=== PATIENT | male | born 1930 | race Caucasian/White ===

== ENCOUNTER 2016-09-27 11:10 | Inpatient (IN) | payer MEDICARE, OTHER ==
--- NOTE | 2016-09-27 12:26 | ED.PDOC ---
History of Present Illness - General Chief Complaint: General Stated Complaint: low hemoglobin Time Seen by Provider: 09/27/16 12:16 - History of Present Illness Initial Comments: THIS PATIENT HAS BEEN ON XARELTO FOR SEVERAL MONTHS AND EVDENTLY HAS HAD SOME HEMATURIA, TREATED BY DR. BRIDGET KING IN [place]. TUESDAY HE NOTED HEMATOCHEZIA AND STOPPED THE XARELTO. THE RECTAL BLEEDING IMPROVED AND THEN HE RESUMED TRHE MEDS LAST NIGHT. HE PRESENTED TO DR. MIRNA FLETCHER'S OFFICE EARLIER TODAY AND A HB WAS 5.6. THE PATIENT IS SENT TO THE ED FOR FURTHER EVALUATION. Timing/Duration: other - SEVERAL WEEKS Severity: moderate Improving Factors: nothing Worsening Factors: nothing Associated Symptoms: malaise, weakness Allergies/Adverse Reactions: Allergies NO KNOWN ALLERGY Allergy (Verified 09/27/16 12:23) Review of Systems - Review of Systems Constitutional: States: malaise, weakness EENTM: States: no symptoms reported Respiratory: States: no symptoms reported Cardiology: States: no symptoms reported Gastrointestinal/Abdominal: States: other - RECTAL BLEEDING Genitourinary: States: no symptoms reported Musculoskeletal: States: no symptoms reported Skin: States: no symptoms reported Neurological: States: no symptoms reported Endocrine: States: no symptoms reported Hematologic/Lymphatic: States: no symptoms reported All other Systems: Reviewed and Negative Past Medical History (General) - Patient Medical History Hx Seizures: No Hx Stroke: No Hx Dementia: No Hx Asthma: No Hx of COPD: No Hx Cardiac Disorders: Yes - A-Fib Hx Congestive Heart Failure: No Hx Pacemaker: No Hx Hypertension: Yes Hx Thyroid Disease: Yes - hypothyroidism Hx Diabetes: No Hx Gastroesophageal Reflux: No Hx Renal Disease: No Hx Cancer: No Hx of HIV: No Hx Hepatitis C: No Hx MRSA: No Surgical History: tonsillectomy - Social History Hx Tobacco Use: No - Triage Comment ED Triage Comment: Was seen in Dr. Fletcher's office this am for rectal bleeding x 3 days. Family Medical History - Family History Mother Living Status: Physical Exam - Physical Exam General Appearance: Alert, Well Developed, Well Groomed, Well Hydrated Eye Exam: bilateral normal, bilateral conjunctivae pale Ears, Nose, Throat: normal ENT inspection, other - USES HEARING AUGMENTATION Neck: non-tender, full range of motion, supple, normal inspection Respiratory: chest non-tender, lungs clear, normal breath sounds, no respiratory distress Cardiovascular/Chest: normal peripheral pulses, regular rate, rhythm, no edema, no gallop, no JVD, no murmur Gastrointestinal/Abdominal: normal bowel sounds, non tender, soft, no organomegaly, no pulsatile mass Rectal Exam: normal exam, normal rectal tone, other - STOOL IS BROWN Back Exam: normal inspection Extremity: normal range of motion, non-tender, normal inspection, no pedal edema , no calf tenderness Skin Exam: pallor Lymphatic: no adenopathy Progress - Progress Progress: 09/27/16 13:16 HB OF 5.6, HCT 17.9, CREAT OF 1.4, BUN OF 31. THE PATIENT HAS BEEN TYPED AND CROSSED FOR TWO UNITS OF PRBC AND WILL BE TRANSFUSED. I HAVE DISCUSSED THE CASE WITH ELSIE SPANN, HOSPITALIST- ACCEPTS ADMISSION TO THE HOSPITAL. Departure - Departure Clinical Impression: Rectal bleeding Anemia Qualifiers: Iron deficiency anemia type: chronic blood loss Time of Disposition: 13:19 Disposition: Admit Patient Departure Forms: ED Discharge - Pt. Copy, Patient Portal Self Enrollment Diet: resume usual diet Activity: increase activity as tolerated - WILL ADMIT FOR TRANSFUSION AND CONSIDER GI CONSULTATION
--- NOTE | 2016-09-27 13:40 | HP ---
SUPERVISING PHYSICIAN: Bright Orona M.D. CHIEF COMPLAINT: Anemia. HISTORY OF PRESENT ILLNESS: Mr. Rust is an 86 year-old male patient that presented from the clinic, Dr. Fletcher's office, for evaluation of a low hemoglobin. The patient has a history of taking Xarelto for Afib since about October 2015 and has had some problems with hematuria off and on which he has been followed by Dr. Philippe Gonzalez in [place]. This past the patient noted he had some hematochezia and then stopped the Xarelto. The rectal bleeding did improve. He talked to Dr. Fletcher's office on Tuesday who recommended he either go to the E. R. or come see Dr. Fletcher on Tuesday. The patient noted he was no longer having any obvious blood in his stool and presented to Dr. Fletcher's office today. Workup in the office showed him to have a hemoglobin of 5.6, hematocrit 17.9. At that point, given the severe anemia and the patient being on Xarelto with active bleed within the last 4 or 5 days, the patient was referred to the Emergency Department. He was found to be in stable condition. Blood pressure on admission to the Emergency Department showed him to be hemodynamically stable with 125/65 with heart rate of 88 showing a normal sinus rhythm on monitor. He was satting 97% on room air and he was afebrile. Exam in the Emergency Department by Dr. Cui resulted in a positive occult blood, however it was noted that the patient's stools were without any james blood on examination and the stool was brown in color and consistency as normal bowel movement. Given the patient' s severity of anemia with the concern for continued lower gastrointestinal bleed , the patient was cross matched for transfusion of 2 units of packed red blood cells and is now to be admitted to the Medical/Surgical floor for continued evaluation, treatment, transfusion of blood and consultation with gastrointestinal services this coming Tuesday with Dr. Piper. The patient was admitted to the Medical/Surgical floor in stable condition. PAST MEDICAL HISTORY: 1. Hypertension. 2. Hypothyroidism. 3. Benign prostatic hypertrophy. 4. Osteoarthritis. 5. Dyslipidemia. 6. Peripheral vascular disease. 7. Diverticulosis. 8. Paroxysmal atrial fibrillation diagnosed in 2016 started on X[address]to by Dr. Portillo. 9. Gross hematuria followed by Dr. Gonazlez. 10. Sleep apnea but does not wear a CPAP. PAST SURGICAL HISTORY: 1. Tonsillectomy and adenoidectomy at age 15. 2. Total left knee in 2013. 3. Bilateral cataracts in 2006. 4. His last echocardiogram was on 01/23/14 and indicated a diastolic dysfunction with an estimated ejection fraction of 66%. HOME MEDICATIONS: 1. Avodart 0.5 mg daily. 2. Levothyroxine 112 mcg daily. 3. Hytrin 5 mg daily. 4. Zocor 20 mg daily. 5. Lisinopril 10 mg daily. 6. Donepezil 10 mg daily. 7. Xarelto 10 mg at bedtime. 8. Colestid 5 mg daily. ALLERGIES: NO KNOWN DRUG ALLERGIES. FAMILY HISTORY: Significant for throat cancers. SOCIAL HISTORY: The patient does have a history of previously smoking approximately 2-1/2 packs a day with an 80 pack year history between 1949 and 1980, and he has quit since 1980. He does admit to drinking alcohol on a daily basis which consists of either 2 shots of Tequila or 2 shots of Scotch. 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 He is . REVIEW OF SYSTEMS: CONSTITUTIONAL: Reports general malaise and weakness but no syncopal episodes. HEENT: Denies any complaints. RESPIRATORY: Notes some shortness of breath with exertion but no chest discomfort, congestion or cough. CARDIOVASCULAR: Denies any chest pains, palpitations, syncopal episodes or presyncopal episodes. Does have a history of paroxysmal atrial fibrillation for which he was started on Xarelto. GASTROINTESTINAL: As noted in History of Present Illness. Rectal bleeding but denies any nausea or vomiting or diarrhea. GENITOURINARY: History of benign prostatic hypertrophy but no current complaints of dysuria. Does have a history of gross hematuria but denies any gross hematuria at this time. MUSCULOSKELETAL: Noted weakness but denies any complaints other than history of osteoarthritis. INTEGUMENT: Denies any easy bruising or unexplained bleeding. NEUROLOGIC: Denies any neurological changes or headaches. Does report some dizziness but no syncopal episodes. PHYSICAL EXAMINATION: VITAL SIGNS: Temperature 98.3, pulse 85, blood pressure 120/67, respirations 20 , O2 sat 97% on room air at rest. Admission weight 74.1 kg. GENERAL: The patient does appear to be well developed, well groomed and well hydrated, and is in no obvious acute distress. HEENT: Does wear bilateral hearing aids. Oropharynx is pale but moist. It is noted that he has bilateral conjunctiva that are pale. Tympanic membranes are clear bilaterally after hearing aids removed. NECK: No jugular venous distention. CHEST: Lungs are clear to auscultation without any rhonchi, wheezing or rales. CARDIOVASCULAR: Regular rate and rhythm without appreciable murmurs, gallops, or rubs. ABDOMEN: Soft, non-tender. Positive bowel sounds. RECTAL: Exam was deferred as it was performed in the Emergency Department by Dr. Cui. As noted, it was a normal exam, normal rectal tone, and stool was brown in color. EXTREMITIES: No clubbing, cyanosis or edema. NEUROLOGIC: He is alert and oriented times three. Cranial nerves II-XII are grossly intact. Facial features are symmetrical. Extraocular movements are within normal limits. There are no notable localizing or lateralizing neuromotor deficits. LABORATORY: Hemoglobin 5.6, hematocrit 17.9 performed in the clinic by Dr. Fletcher. Platelet count is unavailable at time of admission. Coagulation studies show PT 15.5 with INR 1.39, PTT 28.9, reticulocyte and absolute reticulocyte count are pending. Chemistries show normal electrolytes with potassium 4.4, BUN 31, creatinine 1.43, glucose 211, calcium 8.9. Iron was 10, TIBC was normal at 354 with iron saturation low at 2.8. Total bilirubin 0.4, AST and ALT both within normal limits, alkaline phosphatase 36. LDH was 117. Vitamin B12 and folate are pending. Stool occult blood was positive. Urinalysis is pending. BLOOD BANK: the patient was typed and crossed. He is A+ , had a negative antibody screen. RADIOLOGY: No additional radiographic studies were performed on admission. ASSESSMENT: 1. Severe anemia, symptomatic with clinical presentation of weakness and dizziness but hemodynamically stable with the patient having been on Xarelto with recent rectal bleed. 2. Rectal bleed with the patient being on Xarelto with current occult bloods positive with the patient being hemodynamically stable and having stopped Xarelto for the last 72 hours. 3. History of paroxysmal atrial fibrillation diagnosed in October 2015 started on Xarelto by Dr. Portillo currently showing a sinus arrhythmia with no evidence of tachycardia. 4. History of hypertension. 5. History of hypothyroidism on supplementation. 6. History of benign prostatic hypertrophy with elevated PSAs followed by Dr. Gonzalez with a history of gross hematuria. 7. Peripheral vascular disease. 8. History of sleep apnea. 9. Renal insufficiency with an elevated BUN and creatinine likely secondary to gastrointestinal loss versus some mild dehydration. PLAN: The patient will be admitted to the Medical/Surgical floor for continued evaluation and treatment, and transfusion of 2 units of packed red blood cells. The patient is hemodynamically stable at this point. He has been typed and crossed and will be given 2 units of blood tonight with 20 of Lasix after second unit. Will plan to reevaluate hemoglobin and hematocrit in the morning and monitor closely. He will be on telemetry. Should he show any change in condition and any instability, he certainly will require transfer to a higher level of care. We will try to secure a consultation with podiatrist specialist, Dr. Piper, this Tuesday to further address current rectal bleed. I will try to talk to Dr. Portillo in regards to the Xarelto and current heart rhythm , and need for continuation of anticoagulation in the near future, as well as with Dr. Fletcher. He will be provided oxygen as needed and fall precautions in place as he is dizzy secondary to anemia. Will anticipate length of stay to be 2 to 3 days with probable discharge on Tuesday once the patient is found to be clinically stable. Until that point, will continue to monitor the patient closely and treat appropriately. #[id number] [facility]
[2016-09-27] MEDS ORDERED: IV SET AND CAP CHANGE INJ INJ SCH (14:00)
[2016-09-27] MEDS ORDERED: diphenhydrAMINE HCL 50 MG/ML VIAL IV ONE (14:56)
[2016-09-27] MEDS ORDERED: ACETAMINOPHEN 325 MG TAB PO ONE (14:56)
[2016-09-27] MEDS ORDERED: FUROSEMIDE INJ 20 MG/2 ML VIAL IV ONE (14:56)
[2016-09-27] MEDS ORDERED: SODIUM CHLORIDE 0.9% 500ML 500 ML IVS SCH (15:00)
[2016-09-27] MEDS: SODIUM CHLORIDE 0.9% (FLUSH) 10 ML SYG IV PRN ×3 (15:16→22:57)
--- NOTE | 2016-09-28 01:36 | PCM.CORE ---
Physician DVT/VTE - Contraindications Medication Contraindication: Medical Contraindication - Gi Bleed on Xarelto - Nurse DVT Assessment & Total Each Risk Factor Represents 3 Points: Age over 75 years Each Risk Factor is 1 Point: Obesity (BMI >25) DVT Assessment Score: 4 - 5 or more Very High Risk Treatments: Early Ambulation *, Sequential Compression Device
[2016-09-28] MEDS ORDERED: diphenhydrAMINE HCL 50 MG/ML VIAL IV ONE (08:29)
[2016-09-28] MEDS ORDERED: ACETAMINOPHEN 325 MG TAB PO ONE (08:29)
[2016-09-28] MEDS ORDERED: FUROSEMIDE INJ 20 MG/2 ML VIAL IV ONE (08:29)
[2016-09-28] MEDS ORDERED: SODIUM CHLORIDE 0.9% 500ML 500 ML IVS SCH (08:30)
[2016-09-28] MEDS ORDERED: COLESTIPOL HCL 1 GM TAB PO SCH (10:15)
[2016-09-28] MEDS ORDERED: DONEPEZIL HCL 5 MG TAB PO SCH ×2 (10:15→21:00)
[2016-09-28] MEDS ORDERED: TERAZOSIN 5 MG CAP PO SCH ×2 (10:30→21:00)
[2016-09-28] MEDS ORDERED: DUTASTERIDE 0.5 MG CAP PO SCH (10:30)
[2016-09-28] MEDS ORDERED: SIMVASTATIN 20 MG TAB PO SCH ×2 (10:30→21:00)
[2016-09-28] MEDS: LISINOPRIL 10 MG TAB PO SCH (11:08)
[2016-09-28] MEDS: SODIUM CHLORIDE 0.9% (FLUSH) 10 ML SYG IV SCH ×2 (11:12→20:59)
--- NOTE | 2016-09-28 13:41 | PN ---
SUPERVISING PHYSICIAN: Robb Moore MD DATE: 09/28/16 SUBJECTIVE: The patient received 2 units of packed red blood cells last night without any complications. He noted Benadryl made him a little anxious, but when it wore off, he was able to sleep. He remains afebrile and has had no nausea, vomiting or diarrhea. OBJECTIVE: VITAL SIGNS: T-max 98.6. Pulse 80. Blood pressure 128/79. Respirations 18. O2 saturation 95% on room air. I&Os show positive balance of 781 with 1481 in, 700 out. Weight 73.2 kg. CHEST: Lungs clear to auscultation bilaterally without rales, rhonchi or wheezing. HEART: Regular rate and rhythm. ABDOMEN: Obese, but soft and nontender. Positive bowel sounds. EXTREMITIES: No cyanosis, clubbing or edema. NEUROLOGIC: Alert and oriented times three. LABORATORY: Hemoglobin 6.8, hemoglobin 20.0 after 2 units of packed red blood cells. White count remains normal at 6.2 with platelet count 167,000. Differential within normal limits. Retic and absolute retic counts pending. Repeat chemistries show normal electrolytes with potassium 3.9, BUN 25 which is improved from admission of 31, creatinine 1.1, glucose 112, calcium 8.9. Liver functions within normal limits. Vitamin B12 and folate pending. Iron studies again showed low iron, normal TIBC with low iron saturation, ferritin 8.4. Stool occult blood times 1 was positive. EKG showed a sinus arrhythmia with controlled ventricular rate and no evidence of atrial fibrillation. ASSESSMENT: 1. Severe anemia, symptomatic, with clinical presentation of weakness and dizziness, but hemodynamically stable with the patient having been on Xarelto with recent rectal bleed, showing some slow improvement in hemoglobin and hematocrit after 2 units of packed red blood cells. 2. Rectal bleed with the patient being on Xarelto with current occult bloods positive on admission with the patient being hemodynamically stable and having stopped Xarelto 72 hours prior to admission without any further evidence of hematochezia or gross blood in stools. 3. History of paroxysmal atrial fibrillation diagnosed in October 2015, started on Xarelto by Dr. Portillo, currently showing a sinus arrhythmia with no evidence of tachycardia with Xarelto having been stopped. 4. History of hypertension. 5. History of hypothyroidism on supplementation. 6. History of benign prostatic hypertrophy with elevated PSAs, followed by Dr. Gonzalez with a history of gross hematuria complicated by Xarelto. 7. Peripheral vascular disease. 8. History of sleep apnea. 9. Renal insufficiency with an elevated BUN initially on admission with creatinine showing normalization as well as BUN improving after intravenous fluids, felt to be secondary to gastrointestinal loss of blood versus some mild dehydration. PLAN: The patient will receive 2 more units of packed red blood cells today with repeat hemoglobin and hematocrit later tonight or in the morning. The patient is anxious to go home. I explained to him that we need to get the units transfused and give him time to level off and become steady and make sure he is not continuing to lose a significant amount of blood. I did talk to Dr. Ny in [place], his office staff, specifically, Lori, his nurse, in regards to establishing a followup appointment with Dr. Ny for a scope in regards to the rectal bleeding. He is scheduled to see Dr. Ny on 09/30/15 at 10:45 in [place]. At this point, we plan to discharged the patient once his hemoglobin and hematocrit are showing improvement and is at least above 8 in regards to the hemoglobin and having followed upon closely with his GI specialist, Dr. Ny, as scheduled. Until discharge, we will continue to monitor the patient closely and treat appropriately. #[id number] [facility]ENTERWojciech
[2016-09-29 03:16] VITALS: O2SAT 96
[2016-09-29] MEDS ORDERED: LEVOTHYROXINE SODIUM 0.112 MG TAB ONE (05:26)
[2016-09-29 05:55] VITALS: BP 164/81; TEMP 97.7
[2016-09-29] MEDS ORDERED: LEVOTHYROXINE SODIUM 0.112 MG TAB PO SCH (06:30)
[2016-09-29] MEDS: LISINOPRIL 10 MG TAB PO SCH (08:52)
[2016-09-29] MEDS: SODIUM CHLORIDE 0.9% (FLUSH) 10 ML SYG IV SCH (08:53)
[2016-09-29] MEDS ORDERED: DUTASTERIDE 0.5 MG CAP PO SCH (09:00)
--- NOTE | 2016-10-04 11:45 | DS ---
SUPERVISING PHYSICIAN: Robb Moore MD DISCHARGE DIAGNOSIS: 1. Severe anemia, symptomatic with clinical presentation of weakness and dizziness, but hemodynamically stable with the patient having been on Xarelto with recent rectal bleed, showing some slow improvement in hemoglobin and hematocrit after transfusion of packed red blood cells, total of 4 units. 2. Rectal bleed with the patient being on Xarelto with current occult bloods on admission being positive with the patient being hemodynamically stable and having stopped Xarelto 72 hours prior to admission without any further hematochezia or gross blood in the stools. 3. History of paroxysmal atrial fibrillation diagnosed in October 2015 started on Xarelto by Dr. Portillo, currently showing a sinus arrhythmia with no evidence of tachycardia with Xarelto having been stopped. 4. History of hypertension. 5. History of hypothyroidism on supplementation. 6. History of benign prostatic hypertrophy with elevated PSAs, followed by Dr. Gonzalez with a history of gross hematuria, complicated by Xarelto. 7. Peripheral vascular disease. 8. History of sleep apnea. 9. Renal insufficiency with an elevated BUN initially on admission with creatinine showing normalization as well as BUN improvement with intravenous fluids, felt to secondary to gastrointestinal loss of blood versus mild dehydration. HISTORY OF PRESENT ILLNESS: Mr. uRst is an 86-year-old, , male patient that presented from the clinic, Dr. Fletcher's office, for evaluation of a low hemoglobin. The patient has a history of taking Xarelto for atrial fibrillation since about October 2015 and had had some problems with hematuria off and on which he has been followed by Dr. Philippe Gonzalez in [place]. This past prior to admission, the patient noted he had some hematochezia and then stopped the Xarelto. The rectal bleeding did improve. He talked to Dr. Fletcher's office on Tuesday who recommended he either go to the Emergency Room or come see Dr. Fletcher on Tuesday. The patient noted he was no longer having any obvious blood in his stool and presented to Dr. Fletcher's office on Tuesday. Workup in the office showed him to have a hemoglobin of 5.6, hematocrit 17.9. At that point, given the severe anemia and the patient being on Xarelto with active bleed within the last 4 or 5 days, the patient was referred to the Emergency Department. He was found to be in stable condition. Blood pressure on admission to the Emergency Department showed him to be hemodynamically stable with blood pressure 125/65 with heart rate of 88 showing a normal sinus rhythm on monitor. He was satting 97% on room air and he was afebrile. Exam in the Emergency Department by Dr. Cui resulted in a positive occult blood , however, it was noted that the patient's stools were without any james blood on examination and the stool was brown in color and consistency as normal bowel movement. Given the patient's severity of anemia with the concern for continued lower gastrointestinal bleed, the patient was crossmatched for transfusion of 2 units of packed red blood cells initially and was admitted to the Medical/Surgical floor for continued evaluation, treatment, transfusion of blood and consultation with gastrointestinal services. The patient was admitted to the Medical/Surgical floor in stable condition. LABORATORY: Hemoglobin on admission as noted in history of present illness was 5.6 and hematocrit 17. After transfusion of 2 units on 06/28/17 was 6.8 and 20.0. After additional transfusion of 2 more units, hemoglobin was 10.3 and hematocrit 31. Platelet count was 201,000. Differential was was within normal limits. Retic count was 4.6. Coagulation studies show PT 15.5 with INR 1.39, PTT 28.9. Chemistries showed normal electrolytes on admission with potassium 4.4, BUN 31, creatinine 1.43. After transfusion on 4 units, on discharge, electrolytes were within normal limits with potassium 3.8, BUN 22, creatinine 0.98, LDL 117, vitamin B12 512, folate greater than 24, ferritin 8.4, iron saturation 2.8, iron TIBC 354, iron low at 10. He had one occult blood that was positive. MICROBIOLOGY: No specimens submitted. BLOOD BANK: He did have transfusion of 4 units of packed red blood cells that were type specific, A+, antibody screen negative. HOSPITAL COURSE: Mr. Rust was admitted on 09/27/16 as noted in history of present illness for severe anemia and concern for rectal bleed. He had stopped the Xarelto several days prior to admission and was no longer having any obvious james blood. He was hemodynamically stable at time of admission. He was transfused 4 units of packed red blood cells without any complication. He was given Lasix between the second and third unit and after the fourth. He remained hemodynamically stable. At time of discharge, blood pressure was 164/ 81, respirations 20, saturation 96% on room air. He showed no complications from his transfusion and was clinically felt to be stable enough to go home to continue with further monitoring in the outpatient setting. It was initially hoped that he would have a GI consult in the hospital, however, this was unavailable through hospitalization and arrangements were made to followup with his GI doctor at time of discharge. PLAN: The patient was discharged on 09/29/16 to have close clinical followup both with Dr. Fletcher and with Dr. Ny on 09/30/16 at 10:45 for hopefully a colonoscopy. He was to hold his Xarelto until cleared by Dr. Fletcher, but to resume all his other medications as prescribed. He was to use caution when changing positions from sitting to standing to allow himself to stabilize to prevent falls. He was to do no strenuous exercise until cleared by Dr. Fletcher, no driving until he was also cleared by either Dr. Fletcher or Dr. Ny. He was told to return to the hospital should he have return of his bleeding, dizziness or other concerning symptoms. He was discharged in stable condition. No new medications were added to his current medication regimen other than he was told to hold his Xarelto. He was discharged in stable condition. #[id number] [facility]
== END 2016-09-29 09:10 | disposition home or self-care (01) | DRG 812 ==
LOC: ER 11:35 → MS 13:39
PROVIDERS: ADMIT Nurse Practitioner Family; ATTEND Nurse Practitioner Family
PROC: 30233N1 Transfusion of Nonautologous Red Blood Cells into Peripheral Vein, Percutaneous Approach (ICD-10-PCS; 2016-09-27)
PROC: 30233N1 Transfusion of Nonautologous Red Blood Cells into Peripheral Vein, Percutaneous Approach (ICD-10-PCS; principal; 2016-09-28)
DX: D64.9 Anemia, unspecified (principal); R19.5 Other fecal abnormalities; I48.0 Paroxysmal atrial fibrillation; I10 Essential (primary) hypertension; E03.9 Hypothyroidism, unspecified; N40.0 Benign prostatic hyperplasia without lower urinary tract symptoms; I73.9 Peripheral vascular disease, unspecified; G47.30 Sleep apnea, unspecified; E86.0 Dehydration; N18.9 Chronic kidney disease, unspecified; M19.90 Unspecified osteoarthritis, unspecified site; E78.5 Hyperlipidemia, unspecified; Z79.01 Long term (current) use of anticoagulants; Z96.652 Presence of left artificial knee joint; Z79.899 Other long term (current) drug therapy; Z87.891 Personal history of nicotine dependence

== ENCOUNTER → 2016-11-01 | Outpatient (CLI) | payer MEDICARE, OTHER ==
--- NOTE | 2016-11-01 10:23 | RAD ---
EXAM DESCRIPTION: Left knee, three views. CLINICAL HISTORY: LEFT KNEE PAIN. FINDINGS/IMPRESSION: Severe medial femorotibial osteoarthritis with complete loss of joint space appear bony remodeling and sclerosis. Lateral joint line osteophytes along the medial femorotibial compartment Lateral femorotibial chondrocalcinosis. Tiny dorsal patellar osteophytes. Moderate suprapatellar joint effusion No fracture. Normal bone mineralization Electronically signed by: Bright Bond MD 11/01/2016 10:20
--- NOTE | 2016-11-01 10:23 | RAD ---
EXAM DESCRIPTION: Pelvis, single-view. CLINICAL HISTORY: Left hip pain. FINDINGS/IMPRESSION: No fracture or focal osteochondral lesion. Mild symmetric superior joint space narrowing in the hips. No advanced osteoarthritis Normal mineralization. Mild osteoarthritis sacroiliac joints Electronically signed by: Bright Bond MD 11/01/2016 10:21
== END | disposition home or self-care (01) ==
LOC: RAD 08:52
PROVIDERS: ATTEND Orthopaedic Surgery
DX: M25.552 Pain in left hip (principal); M25.562 Pain in left knee

== ENCOUNTER → 2016-12-27 | Outpatient (CLI) | payer MEDICARE, OTHER | END | disposition home or self-care (01) | LOC: GMAB 10:11 | PROVIDERS: ATTEND Family Medicine | DX: Z12.5 Encounter for screening for malignant neoplasm of prostate (principal); E03.9 Hypothyroidism, unspecified | CPT/HCPCS: 84439; 84443; 84481; G0103 ==

== ENCOUNTER → 2018-02-08 | Outpatient (CLI) | payer MEDICARE, OTHER | LOC: GMAB 11:56 | PROVIDERS: ATTEND Family Medicine | DX: E03.9 Hypothyroidism, unspecified (principal); E78.2 Mixed hyperlipidemia; I10 Essential (primary) hypertension; Z12.5 Encounter for screening for malignant neoplasm of prostate | CPT/HCPCS: 84439; 84443; 84481; G0103 ==

== ENCOUNTER → 2018-04-26 | Outpatient (CLI) | payer MEDICARE, OTHER | LOC: GMAE 14:20 | PROVIDERS: ATTEND Family Medicine | DX: R97.20 Elevated prostate specific antigen [PSA] (principal) ==

== ENCOUNTER → 2018-05-12 | Outpatient (CLI) | payer MEDICARE, OTHER ==
--- NOTE | 2018-05-12 09:05 | CT ---
Study: CT abdomen and pelvis. Indication: PROSTATE CANCER Technique: CT of the abdomen and pelvis obtained without intravenous contrast. This exam was performed according to our departmental dose-optimization program, which includes automated exposure control, adjustment of the mA and/or kV according to patient size and/or use of iterative reconstruction technique. Comparison: April 01, 2016. Findings: Emphysema. Calcified granulomas right lung base. Heart size normal. Coronary artery and abdominal aortic atherosclerosis. Several scattered hepatic cysts redemonstrated. Slight hyperdensity of the gallbladder. Stones or sludge could be present. Pancreas, spleen, adrenal glands unremarkable. 2.9 cm hyperdense right renal cyst redemonstrated superiorly, likely proteinaceous. No hydronephrosis or nephrolithiasis. Prostatomegaly. Bladder unremarkable. Stomach, small bowel, and appendix unremarkable. Colonic diverticulosis without evidence of diverticulitis. Tiny hiatal hernia. Small bowel and appendix unremarkable. No free fluid. No free air. No pathologically enlarged lymphadenopathy. Degenerative changes of the spine noted. Impression: Prostatomegaly. Pronounced atherosclerosis. Pronounced colonic diverticulosis. Additional stable findings as above. Electronically signed by: Don Flood MD 05/12/2018 9:04 AM CDT
== END ==
LOC: CT 08:29
PROVIDERS: ATTEND Urology
DX: C61 Malignant neoplasm of prostate (principal); K57.30 Diverticulosis of large intestine without perforation or abscess without bleeding; I25.10 Atherosclerotic heart disease of native coronary artery without angina pectoris; I70.0 Atherosclerosis of aorta

== ENCOUNTER → 2018-05-18 | Outpatient (CLI) | payer MEDICARE, OTHER ==
--- NOTE | 2018-05-19 13:41 | NM ---
EXAM DESCRIPTION: Bone Scan, Whole Body CLINICAL HISTORY: 87 years Male, prostate cancer COMPARISON: None. TECHNIQUE: The patient received 29.3 mCi technetium 99m MDP intravenously. Delayed whole body imaging was obtained. FINDINGS: Bandlike areas of increased activity are seen in the mid and lower thoracic spine primarily at the T6, T7, T9, and T10 levels. Mild increased activity is seen around the L1-L3 disc spaces in the lumbar region. 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 Focal increased activity in the right wrist region is seen. No abnormal increased activity is seen in the ribs. Mild increased activity in the left midfoot region is seen. Small amount of residual activity in the urinary bladder seen. IMPRESSION: Bandlike increased activity in the mid and lower thoracic spine at 4 levels suggests possible acute to subacute compression fracture deformities at these levels. Recommend correlation with thoracic spine series. Probable degenerative increased activity in the right wrist and left midfoot. No bone scan evidence of osteoblastic metastatic disease. Electronically signed by: Bernardino Santos MD 05/19/2018 1:40 PM CDT
== END ==
LOC: NM 10:30
PROVIDERS: ATTEND Urology
DX: C61 Malignant neoplasm of prostate (principal)

== ENCOUNTER → 2018-11-08 | Outpatient (CLI) | payer MEDICARE, OTHER | LOC: GMAE 10:32 | PROVIDERS: ATTEND Family Medicine | DX: R45.84 Anhedonia (principal); E83.51 Hypocalcemia; R53.83 Other fatigue ==

== ENCOUNTER → 2018-12-14 | Outpatient (CLI) | payer MEDICARE, OTHER ==
[~2018-12-14] MED LIST: ALBUTEROL SULFATE 2.5 MG/3 ML VIAL NEB ONE
--- NOTE | 2018-12-14 16:46 | US ---
EXAM DESCRIPTION: Carotid Duplex: ULTRASOUND. CLINICAL HISTORY: 88 years Male I65.23. Occlusion and stenosis of bilateral carotid arteries. COMPARISON: Ultrasound thyroid on the same visit. MRI scan of the brain with contrast 11/19/2015. TECHNIQUE: Transcutaneous scanning utilizing larson-scale and Doppler modes to evaluate the bilateral carotid systems and vertebral arteries. Percentage of diameter of stenosis or no stenosis recorded will be based upon NASCET criteria. FINDINGS: Peak systolic/end diastolic (CM-Sec) CCA Right 66/15 Left 74/15. ICA Right proximal 43/13, mid 52/14. Left proximal 46/12, mid 52/17. Vertebral Right 19/6 Left 30/6. ECA (PS Only) Right 64 left 70. ICA/CCA peak systolic ratio: Right 0.8 Left 0.7 ICA/CCA end diastolic ratio: Right 0.9 Left 1.1 Vertebral arteries: antegrade flow. Comments Comments: Transcribed calcifications of the bilateral common carotid bifurcations and proximal ICAs. Diameter stenosis of the proximal right ICA is 60%. Diameter stenosis of the distal left CCA bulb is 56%. Spectral broadening bilateral proximal ICAs. IMPRESSION: 1. Doppler evaluation of the bilateral carotid systems and vertebral arteries shows no hemodynamically significant stenoses. Larson scale evaluation of stenoses is more significant but not critical. Consider correlation with bilateral carotid and vertebral CTA if clinical findings are discordant with these findings. 2. No significant amount of plaque seen in the carotid arteries bilaterally. Bilateral vertebral arteries showed antegrade-cephalad flow. Electronically signed by: Levon Joaquin MD 12/14/2018 4:43 PM CDT
--- NOTE | 2018-12-15 08:32 | US ---
US THYROID CLINICAL STATEMENT: E04.1. . No palpable mass. No previous thyroid surgery or therapy. COMPARISON: None TECHNIQUE: Transcutaneous scanning, grayscale and Doppler modes. FINDINGS: Size right thyroid lobe: 2.6 x 1.0 x 0.7 cm Size left thyroid lobe: 3.2 x 1.3 x 0.8 cm Size isthmus: 0.2 cm Estimated total number of nodules greater than or equal to 1 cm: 1 Nodule 1: Size: 1.6 x 1.5 x 0.9 cm Location: Left Lower Composition: solid or almost completely solid: 2 points. Small central hypoechoic region or fluid. Echogenicity: hypoechoic: 2 points. Minimally vascular. Shape: wider than tall: 0 points Margins: smooth: 0 points Echogenic foci: none: 0 points ACR Total Points: 4; ACR TI-RADS risk category: TR4 - moderately suspicious nodule. The soft tissue around the thyroid gland shows no evidence of dominant solid mass or distinct cyst. No parenchymal edema or large calcifications. No overlying skin changes. Normal vascularity. IMPRESSION: 1. Nodule 1: ACR TI-RADS 2017 Category TR4. Recommend: Ultrasound-guided fine needle aspiration. Recommendations based upon [facility] Best Practice recommendations and ACR TI-RADS 2017 guidelines. Please see below*. 2. Soft tissue around the thyroid gland is unremarkable. *ACR TI-RADS 2017 Recommendations: TR1: No FNA or follow up TR2: No FNA or follow up TR3: FNA if >/= 2.5 cm, follow up if 1.5 - 2.4 cm in 1, 3, and 5 years TR4: FNA if >/= 1.5 cm, follow up if 1.0 - 1.4 cm in 1, 2, 3, and 5 years TR5: FNA if >/= 1.0 cm, follow up if 0.5 - 0.9 cm every year for 5 years ACR TI-RADS recommends that no more than two nodules with the highest ACR TI-RADS total point should be biopsied and no more than four nodules should be followed. These recommendations do not apply to patients with increased risk for thyroid cancer or patients with symptomatic thyroid disease. Electronically signed by: Levon Joaquin MD 12/15/2018 8:29 AM CDT
== END ==
LOC: US 09:11
PROVIDERS: ATTEND Family Medicine
DX: E04.1 Nontoxic single thyroid nodule (principal); I65.23 Occlusion and stenosis of bilateral carotid arteries; R06.02 Shortness of breath
CPT/HCPCS: 76536; 93880; 94060; J7611

== ENCOUNTER → 2019-05-16 | Outpatient (CLI) | payer MEDICARE, OTHER | LOC: GMAE 11:05 | PROVIDERS: ATTEND Family Medicine | DX: E03.9 Hypothyroidism, unspecified (principal); I10 Essential (primary) hypertension; R97.20 Elevated prostate specific antigen [PSA]; E78.2 Mixed hyperlipidemia ==

== ENCOUNTER → 2019-10-15 | Outpatient (CLI) | payer MEDICARE, OTHER | LOC: GMAE 14:12 | PROVIDERS: ATTEND Family Medicine | DX: E53.8 Deficiency of other specified B group vitamins (principal); R53.83 Other fatigue; E83.51 Hypocalcemia; R97.20 Elevated prostate specific antigen [PSA] ==

== ENCOUNTER → 2020-04-17 | Outpatient (CLI) | payer MEDICARE, OTHER | LOC: GMAE 10:34 | PROVIDERS: ATTEND Family Medicine | DX: K92.1 Melena (principal) ==

== ENCOUNTER → 2020-05-23 | Outpatient (CLI) | payer MEDICARE, OTHER | LOC: GMAE 13:01 | PROVIDERS: ATTEND Family Medicine | DX: E03.9 Hypothyroidism, unspecified (principal); I10 Essential (primary) hypertension; E78.2 Mixed hyperlipidemia ==

== ENCOUNTER → 2020-05-27 | Outpatient (CLI) | payer MEDICARE, OTHER | LOC: GMAE 16:58 | PROVIDERS: ATTEND Family Medicine | DX: E53.8 Deficiency of other specified B group vitamins (principal); E83.52 Hypercalcemia ==